=== PATIENT | female | born 1985 | race Two or more races ===

== ENCOUNTER → 2019-05-06 | Day surgery (SDC) | payer OTHER ==
[~2019-05-06] VITALS: Ht 165.1 cm; Wt 47.6 kg
[~2019-05-06] MED LIST: MULTIPLE VITAM1 EAC2 PO
== END | disposition home or self-care (01) ==
LOC: ADM 04-29 11:15 → CIR.AMB 05:20 → ADM 11:15
DX: N83.11 Corpus luteum cyst of right ovary (principal); N80.1 Endometriosis of ovary; R59.0 Localized enlarged lymph nodes